=== PATIENT | female | born 2000 | race Caucasian/White ===

== ENCOUNTER 2021-11-04 19:48 | Emergency (ER) | payer OTHER ==
[2021-11-04] MEDS ORDERED: Xylocaine 5% OINTMENT TP ONE (20:18)
[2021-11-04 20:28] VITALS: PULSE 99; O2SAT 99
[2021-11-04] MEDS ORDERED: XYLOCAINE VISCOUS 2% 15 ML CUP ONE (20:34)
[2021-11-04] MEDS ORDERED: XYLOCAINE HCl Viscous MM PRN (20:35)
--- NOTE | 2021-11-04 20:45 | ERPHSYRPT ---
- History of Present Illness Time Seen by Provider: 11/04/21 19:50 Source: patient Exam Limitations: no limitations Patient Subjective Stated Complaint: pt states yaa had restal pain and constipation for 3 days Triage Nursing Assessment: pt rates pain in restum as 11/02 Physician History: 21-year-old female presented in the ER with chief complaint of rectal pain. Patient reports she has chronic constipation and seems like she has hemorrhoids causing moderate to severe sharp throbbing pain. Reports stool passing is like going to razor blades. Denies any rectal bleed. She has been doing [id number] medication and sitz bath with no significant relief. No abdominal pain otherwise. Timing/Duration: week(s) Severity: moderate, severe Allergies/Adverse Reactions: No Known Drug Allergies Allergy (Unverified 11/04/21 20:28) Hx Tetanus, Diphtheria Vaccination/Date Given: No Hx Influenza Vaccination/Date Given: No Hx Pneumococcal Vaccination/Date Given: No Immunizations Up to Date: No Travel Risk - International Travel Have you traveled outside of the country in past 3 weeks: No - Coronavirus Screening Are you exhibiting any of the following symptoms?: No Close contact with a COVID-19 positive Pt in past 14-21 Days: No - Vaccine Status Have you recieved a Covid-19 vaccination: Yes [employer]: [facility] - Vaccination Dates Date of 2cond Vaccination (if applicable): unknown - Review of Systems Constitutional: No Symptoms Ears, Nose, & Throat: No Symptoms Respiratory: No Symptoms Cardiac: No Symptoms Abdominal/Gastrointestinal: Constipation Genitourinary Symptoms: No Symptoms Musculoskeletal: No Symptoms Skin: No Symptoms Neurological: No Symptoms Hematologic/Lymphatic: No Symptoms - Past Medical History Pertinent Past Medical History: No - Past Surgical History Past Surgical History: Yes Female Surgical History: Other Other Surgical History: vaginal delivery - Social History Smoking Status: Current every day smoker Drug Use: none Patient Lives Alone: Yes - Female History Hx Last Menstrual Period: 10/06 Hx Now: No - Nursing Vital Signs Nursing Vital Signs: Initial Vital Signs Temperature 97.3 F 11/04/21 20:09 Pulse Rate 99 H 11/04/21 20:09 Respiratory Rate 18 11/04/21 20:09 O2 Sat by Pulse Oximetry 99 11/04/21 20:09 Pain Scale Pain Intensity 6 - Physical Exam General Appearance: no apparent distress, alert Eye Exam: PERRL/EOMI Neck Exam: normal inspection, full range of motion Respiratory Exam: normal breath sounds, lungs clear Cardiovascular Exam: regular rate/rhythm, normal heart sounds Gastrointestinal/Abdomen Exam: soft, normal bowel sounds, No tenderness, No guarding Rectal Exam: tenderness, other (Hard stool in rectal vault), No normal rectal tone (Increased tone), No hemorrhoids, No blood Back Exam: normal inspection, normal range of motion Extremity Exam: normal inspection, normal range of motion Neurologic Exam: alert, oriented x 3, cooperative Skin Exam: normal color SpO2 Interpretation: normal SpO2: 99 O2 Delivery: Room Air Ordered Tests: Medication Summary Discontinued Medications Generic Name Dose Route Start Last Admin Trade Name Freq PRN Reason Stop Dose Admin Lidocaine HCl 3 gm 11/04/21 20:18 11/04/21 20:34 Lidocaine Hcl 35 Gm Tube Ointment TP 11/04/21 20:19 Not Given STAT ONE Lidocaine HCl Confirm 11/04/21 20:34 Lidocaine Hcl 2% Viscous 15 Ml Udcup Administered 11/04/21 20:35 Dose 15 ml .ROUTE .STK-MED ONE Lidocaine HCl 20 ml 11/04/21 20:35 11/04/21 20:42 Lidocaine Hcl Viscous 1 Ml MM 12/04/21 20:34 20 ml PRN PRN Administration PAIN Morphine Sulfate 4 mg 11/04/21 20:47 11/04/21 20:51 Morphine Sulfate 4 Mg/Ml Injection IM 11/04/21 20:48 4 mg STAT ONE Administration Morphine Sulfate Confirm 11/04/21 20:49 Morphine Sulfate 4 Mg/Ml Injection Administered 11/04/21 20:50 Dose 4 mg .ROUTE .STK-MED ONE - Progress Progress: improved, pain not gone completely Progress Note: 11/04/21 21:06 She is given symptomatic treatment for pain and topical lidocaine. Patient feels some improvement and decided to go home and will try Anusol and lidocaine which is sent to the pharmacy. Recommended continue with sitz bath. I did not appreciate any hemorrhoids and it seems like probably patient has anal fissure which I did not see and it was not very well exam because the patient in pain. Recommended outpatient general surgery follow-up. Discussed signs symptoms of worsening needing return to ER which she seemed understanding. Counseled pt/family regarding: diagnosis, need for follow-up - Departure Departure Disposition: Home Clinical Impression: Rectal pain Condition: Good Critical Care Time: No Referrals: ZHANNA BATEMAN NP [Primary Care Provider] - Follow up/PCP as directed (1-2 days for reevaluation.) JOSÉ MIGUEL RANGEL MD [ACTIVE STAFF] - Follow up/PCP as directed (Call for appo intment tomorrow) Instructions: Anal Fissure (DC) Additional Instructions: Take Tylenol/ibuprofen as needed. Take daily MiraLAX and stool softener. Increase fiber in the diet. Follow-up with primary care and general surgery for reevaluation. Return to ER for worsening. Prescriptions: Hydrocortisone 2.5% 30 gm [Anusol-Hc 2.5% Cream 30 gm] 30 gm TP TID 10 Days #1 tu Lidocaine [Rectasmoothe] 30 gm TP TID 7 Days #1 tu
[2021-11-04] MEDS ORDERED: MORPHINE SULFATE 4 MG INJ IM ONE (20:47)
[2021-11-04] MEDS ORDERED: MORPHINE SULFATE 4 MG INJ ONE (20:49)
== END 2021-11-04 21:09 | disposition home or self-care (01) ==
LOC: ED 19:48
DX: K62.89 Other specified diseases of anus and rectum (principal); K59.09 Other constipation; Z72.0 Tobacco use
CPT/HCPCS: 96372; 99283; J2270; A9270-GY